=== PATIENT | female | born 1985 | race Caucasian/White ===

== ENCOUNTER 2023-10-25 14:29 | Outpatient (CLI) | payer OTHER | END 2023-10-25 15:19 | disposition home or self-care (01) | LOC: NST 14:29 | PROVIDERS: ATTEND Obstetrics & Gynecology Maternal & Fetal Medicine | DX: Z34.82 Encounter for supervision of other normal pregnancy, second trimester (principal) ==

== ENCOUNTER 2023-12-07 16:45 | Inpatient (IN) | payer OTHER ==
[~2023-12-07] VITALS: Ht 165.1 cm; Wt 72.1 kg
[2023-12-07] MEDS ORDERED: BETAMETHASONE ACETATE,SOD PHOS 30 MG/5 ML ML IM SCH (16:48)
[2023-12-07] MEDS ORDERED: RINGERS SOLUTION,LACTATED 1,000 ML IV SCH (17:00)
[2023-12-07] MEDS ORDERED: MAGNESIUM SULFATE IN WATER 500 ML IV SCH (17:00)
[2023-12-07] MEDS ORDERED: MAGNESIUM SULFATE IN WATER 100 ML IV ONE (17:00)
[2023-12-07 17:50] LABS: HEMATOCRIT 33.5 % (36.0-45.00); HEMOGLOBIN 11.4 g/dL (12.0-15.00); MEAN CORPUSCULAR HEMOGLOBIN 29.4 pg (27.00-32.0); MEAN CORPUSCULAR HGB CONC 34.2 g/dl (32.0-36.0); PLATELET COUNT 185 K/uL (150-450); RED BLOOD COUNT 3.89 M/uL (4.00-6.00); RED CELL DISTRIBUTION WIDTH 13.3 % (11.5-14.5)
[2023-12-07 18:05] LABS: INR < 0.93; PARTIAL THROMBOPLASTIN TIME 29.6 SECONDS (22.0-34.0); PROTHROMBIN TIME 9.3 SECONDS (9.0-11.5)
[2023-12-07 18:12] LABS: ALBUMIN 2.7 gm/dL (3.4-5.0); BILIRUBIN TOTAL 0.38 mg/dL (0.3-1.2); CALCIUM 8.6 mg/dL (8.5-10.1); CREATININE SERUM 0.52 mg/dL (0.55-1.02); GFR 131.97; GLOBULINA 3.6 G/DL (2.4-3.5); POTASSIUM 3.7 mEq/L (3.5-5.1); TOTAL PROTEIN 6.3 gm/dL (6.4-8.2)
[2023-12-08] MEDS ORDERED: PNV,CALCIUM 72/IRON/FOLIC ACID 1 TAB TABLET PO SCH (09:00)
[2023-12-08] MEDS ORDERED: NIFEDIPINE 30 MG TAB.SA.OSM PO SCH (09:00)
[2023-12-08] MEDS ORDERED: PRENATABS RX T1 EACH PO (10:33)
[2023-12-08] MEDS ORDERED: FERROUS SULFATE 325 MG TABLET.EC PO SCH (16:00)
[2023-12-09] MEDS ORDERED: MAGNESIUM SULFATE IN WATER 4 GM/100 ML PIGGYBACK IV ONE (01:10)
[2023-12-09] MEDS ORDERED: MAGNESIUM SULFATE IN WATER 500 ML IV SCH (01:30)
[2023-12-09] MEDS ORDERED: MAGNESIUM SULFATE IN WATER 100 ML IV ONE (01:30)
[2023-12-10] MEDS ORDERED: NIFEDIPINE 60 MG TAB.SA.OSM PO SCH (03:54)
[2023-12-10] MEDS ORDERED: POLYETHYLENE GLYCOL 3350 17 GM BLIST.PACK PO SCH (09:00)
[2023-12-12] MEDS ORDERED: NIFEDIPINE20 MG PO (01:52)
== END 2023-12-11 09:39 | disposition home or self-care (01) | DRG 833 ==
LOC: LDR 16:45 → OB/GYN 12-10 05:30
PROVIDERS: ADMIT Obstetrics & Gynecology Maternal & Fetal Medicine; ATTEND Obstetrics & Gynecology Maternal & Fetal Medicine
PROC: 4A1HXCZ Monitoring of Products of Conception, Cardiac Rate, External Approach (ICD-10-PCS; principal; 2023-12-07)
PROC: BY4FZZZ Ultrasonography of Third Trimester, Single Fetus (ICD-10-PCS; 2023-12-07)
DX: O46.8X3 Other antepartum hemorrhage, third trimester (principal); Z3A.30 30 weeks gestation of pregnancy; Z20.822 Contact with and (suspected) exposure to COVID-19

== ENCOUNTER 2023-12-12 00:45 | Inpatient (IN) | payer OTHER ==
[~2023-12-12] VITALS: Ht 165.1 cm; Wt 72.6 kg
[~2023-12-12 00:45] MED LIST: PRENATABS RX T1 EACH PO
[2023-12-12] MEDS ORDERED: RINGERS SOLUTION,LACTATED 1,000 ML IV SCH (01:15)
[2023-12-12] MEDS ORDERED: NIFEDIPINE20 MG PO (01:52)
[2023-12-12 01:57] LABS: HEMATOCRIT 35.2 % (36.0-45.00); MEAN CELL VOLUME 85.9 fL (80.00-100.00); MEAN CORPUSCULAR HEMOGLOBIN 28.8 pg (27.00-32.0); MEAN CORPUSCULAR HGB CONC 33.5 g/dl (32.0-36.0); PLATELET COUNT 212 K/uL (150-450); RED BLOOD COUNT 4.09 M/uL (4.00-6.00); RED CELL DISTRIBUTION WIDTH 13.7 % (11.5-14.5)
[2023-12-12 02:22] LABS: HEMOGLOBIN 11.8 g/dL (12.0-15.00)
[2023-12-12 02:41] LABS: FIBRINOGEN 571 mg/dL (187.0-446.0); INR < 0.93; PARTIAL THROMBOPLASTIN TIME 28.5 SECONDS (22.0-34.0); PROTHROMBIN TIME 9.4 SECONDS (9.0-11.5)
[2023-12-12] MEDS ORDERED: MAGNESIUM SULFATE IN WATER 0.04 GM/ML IV.SOLN IV ONE (08:15)
[2023-12-12] MEDS ORDERED: MAGNESIUM SULFATE IN WATER 500 ML IV SCH (09:30)
[2023-12-13] MEDS ORDERED: NIFEDIPINE 30 MG TAB.SA.OSM PO SCH (09:00)
== END 2023-12-14 17:41 | disposition home or self-care (01) | DRG 833 ==
LOC: OBS/DEL 00:45 → LDR 08:37 → O/R 10:19 → LDR 10:20 → OB/GYN 12-13 10:49
PROVIDERS: Obstetrics & Gynecology Gynecology; ADMIT Obstetrics & Gynecology; ATTEND Obstetrics & Gynecology
PROC: 4A1HXCZ Monitoring of Products of Conception, Cardiac Rate, External Approach (ICD-10-PCS; principal; 2023-12-12)
PROC: BY4FZZZ Ultrasonography of Third Trimester, Single Fetus (ICD-10-PCS; 2023-12-12)
DX: O46.8X3 Other antepartum hemorrhage, third trimester (principal); O26.843 Uterine size-date discrepancy, third trimester; O36.8130 Decreased fetal movements, third trimester, not applicable or unspecified; O26.853 Spotting complicating pregnancy, third trimester; Z3A.32 32 weeks gestation of pregnancy; Z20.822 Contact with and (suspected) exposure to COVID-19

== ENCOUNTER 2024-01-04 15:35 | Outpatient (CLI) | payer OTHER ==
[~2024-01-04 15:35] MED LIST changes: +NIFEDIPINE20 MG PO
== END 2024-01-04 17:37 | disposition home or self-care (01) ==
LOC: NST 15:35
PROVIDERS: ATTEND Obstetrics & Gynecology Gynecology
DX: Z34.83 Encounter for supervision of other normal pregnancy, third trimester (principal)

== ENCOUNTER 2024-01-12 03:32 | Outpatient (CLI) | payer OTHER ==
[~2024-01-12] VITALS: Ht 165.1 cm; Wt 73.5 kg
== END 2024-01-12 10:23 | disposition home or self-care (01) ==
LOC: OBS/DEL 03:32
PROVIDERS: ATTEND Obstetrics & Gynecology
DX: O26.893 Other specified pregnancy related conditions, third trimester (principal); Z3A.36 36 weeks gestation of pregnancy

== ENCOUNTER 2024-01-14 10:59 | Inpatient (IN) | payer OTHER ==
[~2024-01-14] VITALS: Ht 165.1 cm; Wt 74.4 kg
[2024-01-14] MEDS ORDERED: RINGERS SOLUTION,LACTATED 1,000 ML IV SCH (11:15)
[2024-01-14 11:26] LABS: URINE APPEARANCE Clear; URINE BILIRRUBIN Negative (NEGATIVE); URINE BLOOD Trace; URINE COLOR Yellow; URINE GLUCOSE Negative (NEGATIVE); URINE LEUKOCYTE Negative; URINE NITRATE Negative; URINE PROTEIN Negative (NEGATIVE); URINE UROBILINOGEN 0.2 E.U./dl
[2024-01-14 11:30] LABS: URINE BACTERIA 27.7 uL (0.0-1933); URINE EPITHELIAL CELLS 2.1 uL (0.0-38.8); URINE WBC 1.9 uL (0.0-23.2)
[2024-01-14 11:31] LABS: URINE RBC 0.4 uL (0.0-20.8)
[2024-01-14 11:32] LABS: HEMATOCRIT 34.4 % (36.0-45.00); HEMOGLOBIN 11.7 g/dL (12.0-15.00); MEAN CELL VOLUME 84.3 fL (80.00-100.00); MEAN CORPUSCULAR HEMOGLOBIN 28.7 pg (27.00-32.0); PLATELET COUNT 231 K/uL (150-450); RED BLOOD COUNT 4.08 M/uL (4.00-6.00); RED CELL DISTRIBUTION WIDTH 14.1 % (11.5-14.5)
[2024-01-14 11:55] LABS: ALBUMIN 2.6 gm/dL (3.4-5.0); BILIRUBIN TOTAL 0.5 mg/dL (0.3-1.2); CALCIUM 9.2 mg/dL (8.5-10.1); CREATININE SERUM 0.54 mg/dL (0.55-1.02); GFR 126.35; GLOBULINA 3.9 G/DL (2.4-3.5); POTASSIUM 4.54 mEq/L (3.5-5.1); TOTAL PROTEIN 6.5 gm/dL (6.4-8.2)
[2024-01-14] MEDS ORDERED: CEFAZOLIN SODIUM 1,000 MG VIAL IV SCH (12:15)
[2024-01-14] MEDS ORDERED: CITRIC ACID/SODIUM CITRATE 30 ML BLIST.PACK PO SCH (12:15)
[2024-01-14 12:17] LABS: INR < 0.93; PROTHROMBIN TIME 9.6 SECONDS (9.0-11.5)
[2024-01-14 12:43] LABS: PARTIAL THROMBOPLASTIN TIME 30.5 SECONDS (22.0-34.0)
[2024-01-14] MEDS ORDERED: OXYTOCIN 10 UNITS/ML VIAL IV ONE (12:45)
[2024-01-14] MEDS ORDERED: ERYTHROMYCIN BASE 1 GM TUBE OP ONE (12:45)
[2024-01-14] MEDS ORDERED: ERYTHROMYCIN BASE 3.5 GM OINT...G. OP ONE (12:45)
[2024-01-14 12:46] LABS: FIBRINOGEN 812 mg/dL (187.0-446.0)
[2024-01-14] MEDS ORDERED: DOCUSATE SODIUM 100MG CAP PO SCH (13:30)
[2024-01-14] MEDS ORDERED: MORPHINE SULFATE 4 MG/ML CARTRIDGE IV SCH (13:30)
[2024-01-14] MEDS ORDERED: KETOROLAC TROMETHAMINE 30 MG VIAL IV SCH (13:31)
[2024-01-14] MEDS ORDERED: KETOROLAC TROMETHAMINE 30 MG VIAL ONE (15:50)
[2024-01-15] MEDS ORDERED: ACETAMINOPHEN 500 MG GEL..CAP PO SCH (06:00)
[2024-01-15 06:30] LABS: HEMATOCRIT 27.5 % (36.0-45.00); HEMOGLOBIN 9.2 g/dL (12.0-15.00); MEAN CELL VOLUME 85.4 fL (80.00-100.00); MEAN CORPUSCULAR HEMOGLOBIN 28.6 pg (27.00-32.0); MEAN CORPUSCULAR HGB CONC 33.6 g/dl (32.0-36.0); PLATELET COUNT 196 K/uL (150-450); RED BLOOD COUNT 3.21 M/uL (4.00-6.00); RED CELL DISTRIBUTION WIDTH 13.6 % (11.5-14.5)
[2024-01-15] MEDS ORDERED: GABAPENTIN 300 MG CAPSULE PO SCH (09:00)
[2024-01-15] MEDS ORDERED: SIMETHICONE 125 MG CAPSULE PO SCH (09:00)
[2024-01-15] MEDS ORDERED: PNV,CALCIUM 72/IRON/FOLIC ACID 1 TAB TABLET PO SCH (09:00)
[2024-01-15] MEDS ORDERED: IBUprofen 600 MG TABLET PO SCH (12:00)
== END 2024-01-17 11:26 | disposition home or self-care (01) | DRG 783 ==
LOC: OB/GYN 10:59 → LDR 10:59 → OB/GYN 14:12
PROVIDERS: ADMIT Obstetrics & Gynecology Gynecology; ATTEND Obstetrics & Gynecology Gynecology
PROC: 0UB70ZZ Excision of Bilateral Fallopian Tubes, Open Approach (ICD-10-PCS; 2024-01-14)
PROC: 4A1HXCZ Monitoring of Products of Conception, Cardiac Rate, External Approach (ICD-10-PCS; 2024-01-14)
PROC: 10D00Z1 Extraction of Products of Conception, Low, Open Approach (ICD-10-PCS; principal; 2024-01-14 12:00)
DX: O60.14X0 Preterm labor third trimester with preterm delivery third trimester, not applicable or unspecified (principal); O41.1230 Chorioamnionitis, third trimester, not applicable or unspecified; O67.8 Other intrapartum hemorrhage; O34.211 Maternal care for low transverse scar from previous cesarean delivery; Z3A.36 36 weeks gestation of pregnancy; Z37.0 Single live birth; Z30.2 Encounter for sterilization; Z20.822 Contact with and (suspected) exposure to COVID-19